=== PATIENT | male | born 2000 | race African-American/Black ===

== ENCOUNTER → 2019-07-04 | Outpatient (REF) | payer OTHER | LOC: M SFHCLERA 10:42 | PROVIDERS: ATTEND Physician Assistant | DX: R50.9 Fever, unspecified (principal) ==

== ENCOUNTER 2020-05-31 13:34 | Emergency (ER) | payer OTHER ==
[~2020-05-31] VITALS: Ht 185.4 cm; Wt 101.8 kg
--- NOTE | 2020-05-31 15:02 | REP ---
INDICATION: contusion, ttp, r/o fracture. COMPARISON: None. TECHNIQUE: Three views. FINDINGS: The nasal bone and inferior maxillary spine are intact. Visualized bony orbital and paranasal sinus margins are intact. Bony nasal septum is midline on the Antunez view. IMPRESSION: Negative nasal bone series. No fracture seen. <Electronically signed by Ernesto Villar > 05/31/20 [id number]
[2020-05-31 15:45] VITALS: BP 138/77
== END 2020-05-31 15:46 | disposition home or self-care (01) ==
LOC: M ED 13:34
DX: S09.90XA Unspecified injury of head, initial encounter (principal); S00.33XA Contusion of nose, initial encounter; R04.0 Epistaxis; W50.0XXA Accidental hit or strike by another person, initial encounter; Y92.9 Unspecified place or not applicable; Y93.62 Activity, american flag or touch football